=== PATIENT | female | born 1990 | race Caucasian/White ===

== ENCOUNTER → 2017-08-29 | Outpatient (CLI) | payer MEDICAID | LOC: RAD 12:28 | PROVIDERS: ATTEND Genetic Counselor, MS | DX: S83.012A Lateral subluxation of left patella, initial encounter (principal); S76.912A Strain of unspecified muscles, fascia and tendons at thigh level, left thigh, initial encounter; M17.12 Unilateral primary osteoarthritis, left knee; M25.462 Effusion, left knee; X58.XXXA Exposure to other specified factors, initial encounter; Y93.89 Activity, other specified; Y92.89 Other specified places as the place of occurrence of the external cause; Y99.8 Other external cause status ==

== ENCOUNTER → 2019-09-04 | Outpatient (CLI) | payer MEDICAID | END | disposition home or self-care (01) | LOC: CFH 15:02 | PROVIDERS: ATTEND Family Medicine | DX: M79.89 Other specified soft tissue disorders (principal) ==